=== PATIENT | female | born 1995 | race Hispanic/Latino ===

== ENCOUNTER 2017-04-21 10:17 | Emergency (ER) | payer MEDICAID, OTHER ==
[2017-04-21] MEDS ORDERED: Albuterol 0.083% Inhal Sol (2.5 mg/3 mL) UD IH STA (11:14)
[2017-04-21 11:31] VITALS: RESP 18; O2SAT 98
[2017-04-21 11:36] LABS: BASO # 0.02 K/mm3 (0.0-2.0); BASO % 0.3 % (0.0-3.0); EOS # 0.1 (0.0-0.7); EOS % 1.3 % (1.5-5.0); GRAN # 4.04 (1.4-6.5); GRAN % 56.3 % (50.0-68.0); HEMOGLOBIN 12.2 g/dL (12.0-16.0); LYMPH # 2.3 (1.2-3.4); LYMPH % 32.5 % (22.0-35.0); MEAN CORPUSCULAR HEMOGLOBIN 24.6 pg (25.0-35.0); MEAN CORPUSCULAR HGB CONC 31.6 g/dl (31.0-37.0); MEAN PLATELET VOLUME 11.2 fl (7.0-11.0); MONO # 0.7 (0.1-0.6); MONO % 9.6 % (1.0-6.0); RBC 4.95 10^6/uL (3.5-6.1); RED CELL DISTRIBUTION WIDTH 14.8 % (11.5-14.5); WHITE BLOOD COUNT 7.2 10^3/ul (4.5-11.0)
[2017-04-21 11:43] LABS: ALB/GLOB RATIO 1.2 (1.1-1.8); ALT/SGPT 39 U/L (7-56); AST/SGOT 30 U/L (14-36); BLOOD UREA NITROGEN 11 mg/dL (7-21); CALCIUM 9.2 mg/dL (8.4-10.5); GFR AFRICAN-AMERICAN > 60; GFR NON-AFRICAN AMERICAN > 60
--- NOTE | 2017-04-21 14:05 | ED PDOC ---
Arrival/HPI - General Chief Complaint: Cough, Cold, Congestion Time Seen by Provider: 04/21/17 11:13 Historian: Patient - History of Present Illness Narrative History of Present Illness (Text): 04/21/17 14:38 22-year-old female presents today with a one-month history of intermittent cough and nasal congestion sore throat. Patient with intermittent subjective fevers. Denies chest pain. Patient admits to history of smoking. Patient denies history of asthma. Patient states she had fevers at home yesterday. No medications have been taken at home for pain. Patient states the cough is intermittent but at times it is hacking. Patient denies sick contacts at home. No other complaints Past Medical History - Provider Review Nursing Documentation Reviewed: Yes - Travel History Have you recently traveled outside [place] w/in the past 3 mons?: No - Tetanus Immunization Tetanus Immunization: Unknown - Psychiatric Hx Psychophysiologic Disorder: No Hx Substance Use: No Family/Social History - Physician Review Nursing Documentation Reviewed: Yes Family/Social History: Unknown Family HX Smoking Status: Heavy Smoker > 10 Cigarettes Daily Hx Alcohol Use: No Hx Substance Use: No Allergies/Home Meds Allergies/Adverse Reactions: Allergies No Known Allergies Allergy (Verified 04/21/17 10:29) Review of Systems - Review of Systems Constitutional: Fevers. absent: Fatigue ENT: Sore Throat, Sinus Congestion Respiratory: Cough. absent: SOB Cardiovascular: absent: Chest Pain, Palpitations Gastrointestinal: absent: Abdominal Pain, Nausea, Vomiting Musculoskeletal: absent: Arthralgias Skin: absent: Rash, Pruritis Neurological: absent: Headache, Dizziness Psychiatric: absent: Anxiety, Depression Physical Exam Vital Signs Reviewed: Yes Vital Signs Temp Pulse Resp BP Pulse Ox 04/21/17 13:20 64 18 107/65 98 04/21/17 11:31 67 18 105/69 98 04/21/17 10:30 98.2 F 65 17 103/65 97 Temperature: Afebrile Blood Pressure: Normal Pulse: Regular Respiratory Rate: Normal Appearance: Positive for: Well-Appearing, Non-Toxic, Comfortable Pain Distress: None Mental Status: Positive for: Alert and Oriented X 3 - Systems Exam Head: Present: Atraumatic Conjunctiva: Present: Normal Ears: Present: Normal, NORMAL TM Mouth: Present: Moist Mucous Membranes, Normal Lips. No: Drooling, Trismus Pharnyx: Present: Normal. No: ERYTHEMA, EXUDATE, TONSILS ENLARGED, Peritonsilar Swelling, Uvular Deviation, Muffled/Hoarse Voice Nose (External): Present: Atraumatic Nose (Internal): Present: Normal Inspection, Clear Mucous Neck: Present: Normal Range of Motion, Trachea Midline. No: Lymphadenopathy Respiratory/Chest: Present: Good Air Exchange, Wheezes (slight expiratory wheezing noted biliaterally. ). No: Clear to Auscultation, Respiratory Distress , Accessory Muscle Use, Decreased Breath Sounds, Retracting, Rhonchi, Tachypneic , Tender to Palpation Cardiovascular: Present: Regular Rate and Rhythm Abdomen: No: Tenderness, Rebound, Guarding Back: Present: Normal Inspection Upper Extremity: Present: Normal ROM Lower Extremity: Present: Normal ROM Neurological: Present: GCS=15, Speech Normal Skin: Present: Warm, Dry, Normal Color. No: Rashes Psychiatric: Present: Alert, Oriented x 3 Medical Decision Making ED Course and Treatment: 04/21/17 14:43 Patient is nontoxic well-appearing. C/o flu-like symptoms. tylenol PO albuterol nebulizer rapid flu; negative cbc: wnl cmp; wnl cxr; no infiltrate or effusion; Tamiflu po zithromax po Patient reassessment:afebrile. vitals stable. lungs CTa bilaterally. pt feeling much better; discussed all results with patient. I advised follow up with primary care physician within the next 2 days. I advised increase fluids and return if symptoms worsen persist or if new symptoms develop Patient verbalizes understanding of discharge instructions and need for immediate followup. all aspects of this case were discussed the attending of record. IMPRESSION; cough, influenza Motrin one tablet every 6 hours as needed for pain/fever reduction zithromax; daily x 4 days albuterol; 2puffs every 4-6 hours as needed for cough. Tamiflu: 1 capsule twice daily 5 days Increase fluids Followup with primary care physician the next 2 days Return if symptoms worsen persist or if new symptoms develop: Continued high fevers, dizziness, weakness, chest pain or shortness of breath vomiting/diarrhea , or if any other concerning symptoms develop Reassessment Condition: Re-examined, Improved - Lab Interpretations Lab Results: 04/21/17 11:25 04/21/17 11:25 Lab Results 04/21/17 11:25: WBC 7.2, RBC 4.95, Hgb 12.2, Hct 38.6, MCV 78.0 L, MCH 24.6 L, MCHC 31.6, RDW 14.8 H, Plt Count 173, MPV 11.2 H, Gran % 56.3, Lymph % (Auto) 32.5, Stokes % (Auto) 9.6 H, Eos % (Auto) 1.3 L, Baso % (Auto) 0.3, Gran # 4.04, Lymph # (Auto) 2.3, Stokes # (Auto) 0.7 H, Eos # (Auto) 0.1, Baso # (Auto) 0.02 04/21/17 11:25: Sodium 146, Potassium 4.6, Chloride 108 H, Carbon Dioxide 27, Anion Gap 16, BUN 11, Creatinine 0.6 L, Est GFR ( Amer) > 60, Est GFR ( Non-Af Amer) > 60, Random Glucose 95, Calcium 9.2, Total Bilirubin 0.3, AST 30, ALT 39, Alkaline Phosphatase 52, Total Protein 7.2, Albumin 4.0, Globulin 3.3, Albumin/Globulin Ratio 1.2 04/21/17 11:25: Influenza Typ A,B (EIA) Negative for flu a/b - RAD Interpretation Radiology Orders: 04/21/17 11:14 CHEST TWO VIEWS (PA/LAT) [RAD] Stat - Medication Orders Current Medication Orders: Discontinued Medications Acetaminophen (Tylenol 325mg Tab) 975 mg PO STAT STA Stop: 04/21/17 11:15 Last Admin: 04/21/17 11:37 Dose: 975 mg MAR Pain/Vitals Document 04/21/17 11:37 GMD (Rec: 04/21/17 11:37 GMD [id number]) Pain Reassessment Is This A Pain ReAssessment? No Presence of Pain Presence of Pain Yes Albuterol Sulfate (Albuterol 0.083% Inhal Luz Maria (2.5 Mg/3 Ml) Ud) 2.5 mg IH STAT STA Stop: 04/21/17 11:15 Last Admin: 04/21/17 11:37 Dose: 2.5 mg Azithromycin (Zithromax) 500 mg PO STAT STA PRN Reason: Protocol Stop: 04/21/17 13:35 Last Admin: 03/05/18 13:45 Dose: 500 mg Oseltamivir Phosphate (Tamiflu Cap) 75 mg PO STAT STA PRN Reason: Protocol Stop: 04/21/17 13:35 Last Admin: 04/21/17 13:45 Dose: 75 mg Disposition/Present on Arrival - Present on Arrival Any Indicators Present on Arrival: No History of DVT/PE: No History of Uncontrolled Diabetes: No Urinary Catheter: No History of Decub. Ulcer: No History Surgical Site Infection Following: None - Disposition Have Diagnosis and Disposition been Completed?: Yes Diagnosis: Cough, Flu-like symptoms Disposition: HOME/ ROUTINE Disposition Time: 14:03 Patient Plan: Discharge Condition: GOOD Discharge Instructions (ExitCare): Cough in Adults, Flu, Adult (DC) Additional Instructions: Motrin one tablet every 6 hours as needed for pain/fever reduction zithromax; daily x 4 days albuterol; 2puffs every 4-6 hours as needed for cough. Tamiflu: 1 capsule twice daily 5 days Increase fluids Followup with primary care physician the next 2 days Return if symptoms worsen persist or if new symptoms develop: Continued high fevers, dizziness, weakness, chest pain or shortness of breath vomiting/diarrhea , or if any other concerning symptoms develop Prescriptions: Albuterol HFA [Ventolin HFA 90 mcg/actuation (8 g)] 2 puff IH [id number] PRN #1 inhaler PRN Reason: Cough Azithromycin [Zithromax] 250 mg PO DAILY #4 tab Ibuprofen [Motrin] 600 mg PO Q6H PRN #20 tab PRN Reason: pain/fever reduction Oseltamivir [Tamiflu] 75 mg PO BID #10 cap Referrals: [facility] [Outside] - Follow up with primary Lex Boyer MD [Staff Provider] - Follow up with primary Forms: [employer] ([employer]), WORK NOTE
[2017-04-21 14:14] VITALS: BP 109/69; PULSE 68
[2017-04-21 14:20] VITALS: TEMP 98.4
== END 2017-04-21 14:27 | disposition home or self-care (01) ==
LOC: MERGE 10:17 → ED 10:17
DX: J11.1 Influenza due to unidentified influenza virus with other respiratory manifestations (principal); R05 Cough; F17.210 Nicotine dependence, cigarettes, uncomplicated